=== PATIENT | female | born 1995 ===

== ENCOUNTER 2021-07-16 09:54 | Outpatient (REF) | payer OTHER, MEDICAID, SELFPAY ==
[2021-07-16 11:23] LABS: Appearance Urine CLEAR; Color Urine YELLOW; Glucose Urine UA NEG (NEG); Leukocyte Esterase Urine NEG (NEG); Nitrite Urine NEG (NEG); Specific Gravity - Urine >= 1.030 (1.005-1.025); Urine Blood NEG (NEG); Urine Ketones NEG (NEG); Urine Protein TRACE MG/DL (NEG-TRACE)
[2021-07-16 11:25] LABS: MANUAL DIFF FLAG NO
[2021-07-16 11:28] LABS: Basophils Percent Auto 0.4 % (0-2); Eosinophils Absolute Auto 0.1 X10*3/uL (0.0-0.4); Eosinophils Percent Auto 1.1 % (0-4); Hematocrit 40.3 % (37.0-47.0); Hemoglobin 13.3 g/dl (12.0-16.0); Imm Gran Abs Auto 0.02 X10*3/uL (0.00-0.03); Imm Gran Pct Auto 0.4 % (0.0-0.4); Lymphocytes Absolute Auto 1.7 X10*3/uL (1.2-4.9); Lymphocytes Percent Auto 29.1 % (20-40); Mean Corpuscular Hemoglobin 29.3 pg (27.0-33.0); Mean Corpuscular Volume 88.8 fL (80.0-98.0); Mean Platelet Volume 10.3 fL (9.4-12.3); Monocytes Absolute Auto 0.7 X10*3/uL (0.1-1.2); Monocytes Percent Auto 12.6 % (2-11); Neutrophils Absolute Auto 3.2 x10*3/uL (2.0-8.3); Neutrophils Percent Auto 56.4 % (45-73); Platelet Count 206 X10*3/uL (160-400); Red Blood Count 4.54 X10*6/uL (4.20-5.50); Red Cell Distribution Width 12.1 % (11.0-16.0); White Blood Count 5.7 X10*3/uL (4.8-10.8)
[2021-07-16 12:07] LABS: Alanine Aminotransferase 13 U/L (0-31); Albumin Level 4.3 g/dL (3.5-5.0); Alkaline Phosphatase 71 U/L (39-117); Anion Gap 10 (12-20); Aspartate Amino Transferase 14 U/L (5-31); Bilirubin Total 0.2 mg/dL (0.0-1.0); Blood Urea Nitrogen 8 mg/dL (9-16); Calcium 9.3 mg/dL (8.4-10.2); Carbon Dioxide 24 mmol/L (22-29); Chloride 109 mmol/L (96-108); Cholesterol 144 mg/dL; Estimated Glomerular Filt Rate > 60; Glucose Fasting 98 mg/dL (60-99); HDL Cholesterol 64 mg/dL; Iron 40 mcg/dL (30-160); LDL Cholesterol Calculated 68 mg/dl; Percent Iron Saturation 10 % (15-50); Potassium 3.7 mmol/L (3.3-5.1); Sodium 139 mmol/L (135-145); Total Iron Binding Capacity 392 mcg/dL (228-428); Total Protein 7.4 g/dL (6.5-8.0); Triglycerides 62 mg/dL; Unsaturated Iron Binding 352 ug/dL
[2021-07-16 12:25] LABS: Folate 9.9 ng/mL (> or = 4.0); Vitamin B12 401 pg/mL (200-900)
[2021-07-16 12:34] LABS: TSH reflex Free T4 2.75 uIU/mL (0.32-4.0)
[2021-07-16 13:03] LABS: Ferritin 59 ng/mL (10-122)
== END 2021-07-16 09:55 | disposition home or self-care (01) ==
LOC: HO.HMGCLDS 09:54
PROVIDERS: PCP Nurse Practitioner Family; Visit Provider Nurse Practitioner Family
DX: Z00.00 Encounter for general adult medical examination without abnormal findings (principal)
CPT/HCPCS: 36415; 80053; 80061; 81003; 82607; 82728; 82746; 83540; 84443; 85025

== ENCOUNTER 2023-08-02 10:51 | Outpatient (AMB) | payer MEDICAID, SELFPAY ==
--- NOTE | 2023-08-02 10:53 | MHC.PC.OV ---
Vital Signs 08/02/23 10:55 Height 5 ft 0.3 in Weight 116 lb BMI 22.4 BP 100/68 Blood Pressure Location Rt brachial Position Sitting Pulse 91 Pulse Source Pulse Oximeter Pulse Oximetry (%) 99 Oxygen Delivery Method Room Air Intake Visit Reasons: growth on right scalp Intake Note: Patient here for growth behind right ear. She states at first it was tender which it no longer is, feels scaly and hard. Her mom has a hx of skin cancer. Brown in color and weird shape. Allergies loratadine Allergy (Verified 08/02/23 10:57) itchy skin Medication List - Last Reconciled 08/02/23 by YOVANI Rucker No Known Home Meds Tobacco use date assessed: 08/02/23 Dental Screening Dental Screen Date: 08/02/23 Did you have a dental visit in the last 12 months?: Yes Did you have a dental problem in the last 6 months where you did not have access to dental care?: No Was dental information given to patient?: Patient has dentist HPI growth on right scalp HPI Details Pt reports noticing a bump behind her right ear 4 days ago. She reports that this was pruritic but is not anymore. Pt reports that this is tender. She does have a mole in this area that appears dry. Will refer to derm. Denies fever, chills, and dizziness. [facility] Medical History (Updated 08/02/23 @ 11:07 by YOVANI Rucker) Depression, major, recurrent, moderate Anxiety Family History Father No problems noted. Mother Hypertension Social History Housing: House Patient Tobacco Use Status: Never used Tobacco e-Cigarette/Vaping Use: Former Use Current occupational status: employed Cognitive needs: No Hearing needs: No Vision needs: No Questionnaire Thrive Questionnaire Date Thrive assessed: 08/17/22 AUDIT C Alcohol Use Questionnaire (AUDIT-C) 1. How often do you have a drink containing alcohol?: Monthly or less 2. How many drinks containing alcohol do you have on a typical day when you are drinking?: 1 or 2 3. How often do you have six or more drinks on one occasion?: Never Total Score: 1 Score Reviewed/Action Taken: No YENIFER-7 AMB Questionnaire YENIFER-7 Date YENIFER - 7 assessed: 08/17/22 Source: Developed by Drs. Bud Conde, Jany Ba, Calvin Cornejo and colleagues, with an educational deyvi from [email or web address]. Review of Systems Const Reports as per HPI Physical exam (Primary Care) Vital Signs: Last Vital Signs Pulse 91 08/02/23 10:55 BP 100/68 08/02/23 10:55 Pulse Ox 99 08/02/23 10:55 Oxygen Delivery Method Room Air 08/02/23 10:55 BMI result Body Mass Index 22.4 Tobacco/Smoking Status: Tobacco use Status Tobacco use date assessed 08/02/23 08/02/23 10:59 Patient Tobacco Use Status Never used Tobacco 08/02/23 10:54 e-Cigarette/Vaping Use Former Use 08/02/23 10:54 Thrive Assessment: Date of Thrive Assessment Date Thrive assessed 08/17/22 08/02/23 10:54 Const General: cooperative Orientation/consciousness: patient oriented x3 Resp Effort & Inspection: normal respiratory effort Auscultation: clear to auscultation bilaterally Cardio Rate: regular rate Rhythm: regular rhythm Heart sounds: S1 normal heart sound present and S2 normal heart sound present Skin Other: right postauricular region slightly superior along hairline with small ? mole, dry, darker pigmentation, not tender with touch Neuro General: patient oriented x3 Psych Appearance: grossly normal Mental Status: mental status grossly normal Speech and movement: Normal speech and movement present Affect: normal affect Attitude: cooperative Thought process: Normal thought process present Thought content: Normal thought content present Insight: Good insight present (Psych) Judgement: Good judgement present (Psych) Assessment and Plan Assessment & Plan (1) Scalp lesion: Code(s): L98.9 - Disorder of the skin and subcutaneous tissue, unspecified Plan: Referred to derm Plan The patient agreed to the use of a medical equipment technician for this encounter. Scribed for YOVANI Brice by nathen Tariq scribe, on 08/02/2023 at 11:05 EST. Orders: Referrals Dermatology Referral L98.9 - Disorder of the skin and subcutaneous tissue, unspecified Coding Level of Care Code Est Pt Level 3 (95191) Diagnoses Scalp lesion L98.9
[2023-08-02 10:55] VITALS: BP 100/68; PULSE 91; O2SAT 99; BMI 22.4
== END 2023-08-02 11:10 | disposition home or self-care (01) ==
PROVIDERS: PCP Nurse Practitioner Family; Visit Provider Nurse Practitioner Family
DX: L98.9 Disorder of the skin and subcutaneous tissue, unspecified (principal)
CPT/HCPCS: 99213

== ENCOUNTER 2023-09-29 09:13 | Outpatient (AMB) | payer OTHER, SELFPAY ==
[2023-09-29 09:15] VITALS: BP 110/70; PULSE 83; TEMP 36.1; O2SAT 98; BMI 22.8
--- NOTE | 2023-09-29 09:15 | MHC.OFFWIV ---
Intake Vital Signs 09/29/23 09:15 Height 5 ft 0.3 in Weight 118 lb BMI 22.8 BP 110/70 Blood Pressure Location Lt brachial Position Sitting Pulse 83 Pulse Source Pulse Oximeter Temp 97.0 F Temp Source Temporal Artery Scan Pulse Oximetry (%) 98 Oxygen Delivery Method Room Air Intake Visit Reasons: EST/sinus pressure (lobby masked) Intake Note: pt is here today for sinus pressure started 5 days ago Patient Tobacco Use Status: Never used Tobacco Allergies loratadine Allergy (Verified 09/29/23 09:16) itchy skin Medication List - Last Reconciled 09/29/23 by HAY Gonzalez amoxicillin 875 mg PO BID 7 days Do you need a note to return to daycare/school/sports/work: No HPI HPI Comments History of Present Illness Details 27-year-old female presents today complaining of left sided maxillary sinus pain for the last 10 days. It radiates into her teeth. [facility] Medical History (Updated 09/29/23 @ 09:44 by HAY Gonzalez) Depression, major, recurrent, moderate Anxiety Family History Father No problems noted. Mother Hypertension Social History Housing: House Patient Tobacco Use Status: Never used Tobacco e-Cigarette/Vaping Use: Former Use Current occupational status: employed Cognitive needs: No Hearing needs: No Vision needs: No Review of Systems Eyes Reports no additional complaints ENT Reports as per HPI Card Reports no additional complaints Resp Reports no additional complaints Physical Exam Vital Signs: Last Vital Signs Temp 97.0 F 09/29/23 09:15 Pulse 83 09/29/23 09:15 BP 110/70 09/29/23 09:15 Pulse Ox 98 09/29/23 09:15 Oxygen Delivery Method Room Air 09/29/23 09:15 BMI result Body Mass Index 22.8 Const General: healthy appearing HEENT Head: Yes normal to inspection, Yes normocephalic and Yes atraumatic Ears: hearing grossly normal bilaterally, external ears normal, TM's normal bilaterally, TM normal on the right, TM normal on the left and EAC's normal General nose exam: Normal external nose present Face and sinus: Yes sinus tenderness (left) Mouth: Normal oral and palatal mucosa present Resp Effort & Inspection: normal respiratory effort Auscultation: clear to auscultation bilaterally Cardio Rate: regular rate Rhythm: regular rhythm Assessment & Plan Assessment & Plan (1) Sinusitis: Code(s): J32.9 - Chronic sinusitis, unspecified Plan: Patient will take antibiotics for 7 days. I also talked to her about some steam inhalation to break up some of her sinus blockage. Follow up with her PCP Plan See plan Medications: New amoxicillin 875 mg PO BID 7 days 14 tabs 0RF Coding Level of Care Code Est Pt Level 3 (30779) Diagnoses Sinusitis J32.9
== END 2023-09-29 10:00 | disposition home or self-care (01) ==
PROVIDERS: PCP Nurse Practitioner Family; Visit Provider Physician Assistant Medical
DX: J32.9 Chronic sinusitis, unspecified (principal)
CPT/HCPCS: 99213

== ENCOUNTER 2024-06-01 08:52 | Outpatient (AMB) | payer OTHER, SELFPAY ==
[2024-06-01 09:00] VITALS: BP 118/70; PULSE 83; TEMP 36.8; O2SAT 100; BMI 22.8
--- NOTE | 2024-06-01 09:00 | MHC.OFFWIV ---
Intake Vital Signs 06/01/24 09:00 Height 5 ft 0.3 in Weight 118 lb BMI 22.8 BP 118/70 Blood Pressure Location Lt brachial Position Sitting Pulse 83 Pulse Source Pulse Oximeter Temp 98.3 F Temp Source Oral Pulse Oximetry (%) 100 Oxygen Delivery Method Room Air Intake Visit Reasons: EP sore throat, ear pain, congestion Intake Note: pt is here for sore throat, ear pain, and congestion Patient Tobacco Use Status: Never used Tobacco Allergies loratadine Allergy (Verified 06/01/24 09:01) itchy skin Do you need a note to return to daycare/school/sports/work: No HPI EP sore throat, ear pain, congestion HPI Details This note is constructed using voice recognition software. While every effort has been made to ensure accuracy, electric sign wirer errors may have been included. The patient is a 28 year old female who presents to the clinic today with soar throat, ear and nose congestion. She denies fever, chills, dyspnea. She has a mild cough with thick green secretions. Her child is also sick with the same. She has not taken anything to help herself feel better. [facility] Medical History (Updated 09/29/23 @ 09:44 by HAY Gonzalez) Depression, major, recurrent, moderate Anxiety Family History Father No problems noted. Mother Hypertension Social History Housing: House Patient Tobacco Use Status: Never used Tobacco e-Cigarette/Vaping Use: Former Use Current occupational status: employed Cognitive needs: No Hearing needs: No Vision needs: No Review of Systems Const All systems reviewed & are unremarkable except as noted in HPI and below Physical Exam Vital Signs: Last Vital Signs Temp 98.3 F 06/01/24 09:00 Pulse 83 06/01/24 09:00 BP 118/70 06/01/24 09:00 Pulse Ox 100 06/01/24 09:00 Oxygen Delivery Method Room Air 06/01/24 09:00 BMI result Body Mass Index 22.8 Const General: cooperative, healthy appearing, comfortable and no acute distress Orientation/consciousness: patient oriented x3 Limitations: no limitations HEENT Head: Yes normal to inspection Ears: hearing grossly normal bilaterally, external ears normal and TM's normal bilaterally General nose exam: Normal external nose present, Normal nares present and No nasal discharge present Face and sinus: Yes normal facial exam and Yes sinuses nontender Mouth: Normal oral and palatal mucosa present and moist mucous membranes Throat: Yes tonsils normal, Yes uvula midline and Yes posterior oropharynx abnormal (Erythema) Eyes General: appearance normal, both eyes and all related structures Neck Neck: Yes normal visual inspection Resp Effort & Inspection: normal respiratory effort, able to speak in complete sentences, Actively coughing, no respiratory distress, not tachypneic, no tripod positioning and no use of accessory muscles Auscultation: clear to auscultation bilaterally Cardio Jugular venous distension: no JVD Rate: regular rate Rhythm: regular rhythm Heart sounds: S1 normal heart sound present, S2 normal heart sound present, no click, no gallops, no murmurs and no rubs Skin General skin exam: no rashes or lesions noted, elasticity normal and turgor normal Neuro General: patient oriented x3 Extrem General: Yes normal to inspection and Yes no clubbing, cyanosis or edema Results AMB Rapid Strep AMB Rapid Strep Negative Last Edit by Girma Hermosillo CMA on 06/01/24 09:15 Results Reviewed Results Reviewed: Laboratory Last Values Strep Scn Rapid Clinic Negative 06/01/24 09:15 Assessment & Plan Assessment & Plan (1) URI (upper respiratory infection): Code(s): J06.9 - Acute upper respiratory infection, unspecified Qualifiers: URI type: unspecified URI Qualified Code(s): J06.9 - Acute upper respiratory infection, unspecified Plan: Viral swab obtained to rule out Covid, FLu, RSV based on symptoms. Advised mask wearing while symptomatic and quarantine per current CDC guidelines. Reviewed at home support methods including hydration, humidification, vix vapor rub, sinus rinse. consider Mucinex for symptom management. Advised follow up with worsening symptoms such as dyspnea at rest, which would require emergent evaluation. Plan See above for full details and plan. Orders: Orders AMB Rapid Strep Screen Today Iveth Guillen PA-C Z13.9 - Encounter for screening, unspecified SARS-CoV2/FLU/RSV Today Iesha Cabezas NP J06.9 - Acute upper respiratory infection, unspecified Coding Level of Care Code Est Pt Level 3 (64397) Diagnoses Upper respiratory tract infection, unspecified type J06.9 URI type: unspecified URI
== END 2024-06-01 11:33 | disposition home or self-care (01) ==
PROVIDERS: PCP Nurse Practitioner Family; Visit Provider Registered Nurse
DX: Z13.9 Encounter for screening, unspecified (principal); J06.9 Acute upper respiratory infection, unspecified

== ENCOUNTER 2024-06-01 08:52 | Outpatient (REF) | payer OTHER, SELFPAY ==
[2024-06-01 16:38] LABS: Influenza A PCR NEGATIVE (Negative); Influenza B PCR NEGATIVE (Negative); Resp Syncy Virus RNA Qual PCR NEGATIVE (Negative); SARS COV2 PCR INHOUSE NEGATIVE (Negative)
== END 2024-06-01 08:53 | disposition home or self-care (01) ==
LOC: HO.LNP 08:52
PROVIDERS: PCP Nurse Practitioner Family; Visit Provider Registered Nurse
DX: J06.9 Acute upper respiratory infection, unspecified (principal)
CPT/HCPCS: 0241U; 87880; 99212

== ENCOUNTER 2024-06-29 14:00 | Outpatient (AMB) | payer OTHER, SELFPAY ==
[2024-06-29 14:09] VITALS: BP 110/62; PULSE 76; O2SAT 97; BMI 22.0
--- NOTE | 2024-06-29 14:09 | A.OFFPC_ITS ---
Vital Signs 06/29/24 14:09 Height 5 ft 0.3 in Weight 114 lb BMI 22.0 BP 110/62 Blood Pressure Location Rt brachial Position Sitting Pulse 76 Pulse Source Pulse Oximeter Pulse Oximetry (%) 97 Oxygen Delivery Method Room Air Intake Visit Reasons: dizziness, ? anemia Intake Note: pt is here for dizziness, possible anemia Allergies loratadine Allergy (Verified 06/29/24 17:28) itchy skin Medication List - Last Reconciled 06/29/24 by ARCENIO Rucker No Known Home Meds Tobacco use date assessed: 08/02/23 Dental Screening Dental Screen Date: 08/02/23 HPI dizziness, ? anemia HPI Details Chief Complaint The patient presents with sudden onset dizziness. History of Present Illness The patient is a 28-year-old female presenting with dizziness. The symptoms began suddenly last night with no apparent inciting event. The dizziness is described as a sensation of moving while stationary, accompanied by fatigue, weakness, and intermittent shortness of breath. The patient denies any associated nausea or vomiting. She also reports losing 6 pounds recently and experiencing poor appetite and irregular eating habits. The patient believes her anxiety may exacerbate the shortness of breath. There is no history of fever, chills, chest pain, gastrointestinal bleeding, or excessive vaginal bleeding. She denies any possibility of . The dizziness seems to occur in waves and momentarily feels like an out-of-body experience, potentially indicating a connection to anxiety or panic attacks. She currently takes no medication for anxiety. The patient acknowledges lifestyle factors that might contribute, including minimal food intake. Today, she experienced episodic dizziness while driving, which did not resolve upon reaching her destination. Social History - Reports poor dietary habits, consuming approximately one meal a day or experiencing lack of appetite. - Denies substance use-related to curren t symptoms but mentions recent vaping and subsequent cessation. - Reports anxiety as a significant facto r impacting her current health, with no preventive or therapeutic measures in place. Health Maintenance Review of Systems - Constitutional: Reports fatigue and we akness. - Neurological: Reports dizziness with a sense of things moving around while stationary. - Respiratory: Reports shortness of elliot th, believes it is related to anxiety. - Gastrointestinal: Denies nausea and vo miting. - Genitourinary: Denies vaginal bleeding . - Hematological: Reports recent unintent ional weight loss. Physical Exam General: Cooperative, healthy appearing, comfortable, no acute distress and well developed Orientation: Patient oriented x3 Limitations: No limitations Head: Normal to inspection Ears: Hearing grossly normal bilaterally Nose: Normal external nose present Face and sinus: Normal facial exam Eyes: Appearance normal, both eyes and all related structures Neck: Normal visual inspection and Yes full ROM Respiratory: Normal respiratory effort and able to speak in complete sentences. Clear to auscultation bilaterally Cardiovascular: Regular rate and rhythm. Normal S1 and S2 GI: Normal to inspection. Soft to palpation and nontender Skin: No rashes or lesions noted Neuro: Patient oriented x3 Extremities: Normal to inspection Results Plan - Recommend urgent evaluation in the tonia ency room to rule out potential causes of dizziness, including inner ear disorders or other neurological issues. - Coordinate with the patient's father t o ensure safe transportation to the emergency room due to intermittent dizziness while driving. - Plan to conduct blood work to investig ate possible causes of dizziness after ER evaluation. - Provide reassurance regarding the poss ible anxiety component and discuss potential treatment options for anxiety after immediate concerns are addressed. Patient was informed and verbally consented to the use of an ambient scribe for clinic note documentation during this visit. Discussion Notes Patient Instructions - Arrange for immediate transportation t o the emergency department for further evaluation. - Avoid driving or operating heavy machi deven until symptoms are evaluated and treated. - Once urgent care is received, follow u p for a comprehensive evaluation of anxiety and dietary concerns. - Prioritize rest and hydration until di zziness is medically assessed. - Consider discussing dietary habits and anxiety management at follow-up appointments. [facility] Medical History (Updated 06/29/24 @ 17:29 by ROBERT Rucker-TANYA) Depression, major, recurrent, moderate Anxiety Family History Father No problems noted. Mother Hypertension Social History Housing: House Patient Tobacco Use Status: Never used Tobacco e-Cigarette/Vaping Use: Former Use Current occupational status: employed Cognitive needs: No Hearing needs: No Vision needs: No Questionnaire PHQ-9 Over the last 2 weeks, how often have you been bothered by any of the following problems? 1. Little interest or pleasure in doing things: more than half the days 2. Feeling down, depressed, or hopeless: not at all 3. Trouble falling or staying asleep, or sleeping too much: several days 4. Feeling tired or having little energy: nearly every day 5. Poor appetite or overeating: nearly every day 6. Feeling bad about yourself - or that you are a failure or have let yourself or your family down: not at all 7. Trouble concentrating on things, such as reading the newspaper or watching television: more than half the days 8. Moving or speaking so slowly that other people could have noticed. Or the opposite - being so fidgety or restless that you have been moving around a lot more than usual: several days 9. Thoughts that you would be better off or of hurting yourself in some way: not at all Total score: 12 Depression Screening Interpretation: Positive Depression Screening Done: Yes 60908 - PHQ-9 Billing: Yes Source: Developed by Drs. Bud Conde, Jany Ba, Calvin Cornejo and colleagues, with an educational deyvi from [employer]. Thrive Questionnaire Date Thrive assessed: 06/29/24 I am a: Patient What is your living situation today?: I have a steady place to live Within the past 12 months, did the food you bought not last and you didn't have the money to get more?: Never true Within the past 12 months, did you worry whether your food would run out before you got money to buy more?: Never true Do you have trouble paying for medicines?: No Do you have trouble getting transportation to medical appointments?: No Do you have trouble paying your heating and electricity bill?: No Do you have trouble taking care of your child, family member or friend?: No Do you have trouble with day-to-day activities such as bathing, preparing meals, shopping, managing finances, etc.?: No Are you currently unemployed and looking for a job?: No Are you interested in more education?: No Please select the resources that you would like help with: None Currently or been in a relationship where the following occur: No concerns reported THRIVE Score: 0 AUDIT C Alcohol Use Questionnaire (AUDIT-C) 1. How often do you have a drink containing alcohol?: Never 3. How often do you have six or more drinks on one occasion?: Never Total Score: 0 Score Reviewed/Action Taken: Yes YENIFER-7 AMB Questionnaire YENIFER-7 Date YENIFER - 7 assessed: 06/29/24 Feeling nervous, anxious, or on edge: 3 = Nearly every day Not being able to stop or control worryin = Nearly every day Worrying too much about different things: 3 = Nearly every day Trouble relaxin = More than half the days Being so restless that it is hard to sit still: 0 = Not at all Becoming easily annoyed or irritable: 3 = Nearly every day Feeling afraid as if something awful might happen: 3 = Nearly every day Total YENIFER-7 score (0-4 normal; 5-9 mild; 10-14 moderate; 15-21 severe): 17 Source: Developed by Drs. Bud Conde, Jany Ba, Calvin Cornejo and colleagues, with an educational deyvi from [employer]. YENIFER-7 Assessment Billing YENIFER-7 Assessment Tool: YENIFER-7 Assessment 70307 Physical exam (Primary Care) Vital Signs: Last Vital Signs Pulse 76 06/29/24 14:09 BP 110/62 06/29/24 14:09 Pulse Ox 97 06/29/24 14:09 Oxygen Delivery Method Room Air 06/29/24 14:09 BMI result Body Mass Index 22.0 Tobacco/Smoking Status: Tobacco use Status Tobacco use date assessed 08/02/23 06/29/24 14:13 Patient Tobacco Use Status Never used Tobacco 06/29/24 14:13 e-Cigarette/Vaping Use Former Use 06/29/24 14:13 PHQ-9: PHQ-9 Score PHQ-9: Total score 12 06/29/24 14:50 Depression Screening Interpretation: Positive Thrive Assessment: Date of Thrive Assessment Date Thrive assessed 06/29/24 06/29/24 14:13 Currently or been in a relationship where the following occur: No concerns reported Coding Level of Care Code Est Pt Level 3 (18569) Diagnoses Anxiety F41.9 Fatigue R53.83 Dizziness R42 Additional Codes YENIFER-7 Assessment Billing - YENIFER-7 Assessment Tool: YENIFER-7 Assessment 71028 ([id number]) PHQ-9 - 94720 - PHQ-9 Billing: Yes ([id number]) Assessment & Plan Assessment & Plan (1) Anxiety: Code(s): F41.9 - Anxiety disorder, unspecified Category: Medical (2) Fatigue: Code(s): R53.83 - Other fatigue Category: Medical (3) Dizziness: Code(s): R42 - Dizziness and giddiness Category: Medical Plan .
== END 2024-06-29 16:06 | disposition home or self-care (01) ==
PROVIDERS: PCP Nurse Practitioner Family; Visit Provider Nurse Practitioner Family
DX: F41.9 Anxiety disorder, unspecified (principal); R53.83 Other fatigue; R42 Dizziness and giddiness

== ENCOUNTER → 2024-06-29 14:00 | Outpatient (BNVA) | payer OTHER, SELFPAY | PROVIDERS: PCP Nurse Practitioner Family; Visit Provider Nurse Practitioner Family | DX: F41.9 Anxiety disorder, unspecified (principal); R53.83 Other fatigue; R42 Dizziness and giddiness | CPT/HCPCS: 96127; 99212 ==

== ENCOUNTER 2024-08-22 08:59 | Outpatient (AMB) | payer OTHER, SELFPAY ==
--- OUTSIDE RECORDS SUMMARY | 2024-08-22 09:18 | XMS_ITS | Clinical Summary ---
Author Organization [facility] Address [address] [place] [address] Care Team Providers Care Communication Instructor Name Role Phone Unavailable Primary Care Provider Unavailabl e Allergies Active Allergy Reactions Criticality Noted Date Comments Loratadine 09/16/2020 Medications No known medications Social History Tobacco Use Types Packs/Day Years Used Date Smoking Tobacco: Every Day Nicotine Inhalation Smokeless Tobacco: Never Alcohol Use Standard Drinks/Week Comments No 0 (1 standard drink = 0.6 oz pur e alcohol) Sex and Gender Information Value Date Recorded Sex Assigned at Female 09/16/2020 8:05 PM EST Gender Identity Not on file Sexual Orientation Not on file Last Filed Vital Signs Vital Sign Reading Time Taken Comments Blood Pressure 129/82 09/16/2020 7:19 PM EST Pulse 73 09/16/2020 7:19 PM EST Temperature 36.7 ??C (98.1 ??F) 09/16/2020 7:19 PM ES T Respiratory Rate 16 09/16/2020 7:19 PM EST Oxygen Saturation 100% 09/16/2020 7:19 PM EST Inhaled Oxygen Concentration - - Weight 52.2 kg (115 lb) 09/16/2020 7:19 PM EST Height 149.9 cm (4' 11 ) 09/16/2020 7:19 PM EST Body Mass Index 23.23 09/16/2020 7:19 PM EST Plan of Treatment Not on file
--- OUTSIDE RECORDS SUMMARY | 2024-08-22 09:18 | XMS_ITS | Clinical Summary ---
Author Organization [facility] ity Address [address] [place] [address] Care Team Providers Care Senior Product Engineer Name Role Phone Unavailable Primary Care Provider Unavailabl e Social History Tobacco Use Types Packs/Day Years Used Date Smoking Tobacco: Every Day Smokeless Tobacco: Never Alcohol Use Standard Drinks/Week Comments No 0 (1 standard drink = 0.6 oz pur e alcohol) Sex and Gender Information Value Date Recorded Sex Assigned at Not on file Gender Identity Not on file Sexual Orientation Not on file Obstetrics History Plan of Treatment Health Maintenance Due Date Last Done Comments DTaP,Tdap,and Td Vaccines (1 - Tdap) 12/27/2015 Hepatitis B Vaccines (1 of 3 - 19+ 3-dose series) 12/27/2015 Cervical Cancer Screening: P ap Smear 2017 COVID-19 Vaccine ( - 2023-2 5 season) 2024 Influenza Vaccine (#1) 2024 HIB Vaccines Aged Out No longer eligi ble based on patient's age to complete this topic HPV Vaccines Aged Out No longer eligi ble based on patient's age to complete this topic Hepatitis A Vaccines Aged Out No long er eligible based on patient's age to complete this topic IPV Vaccines Aged Out No longer eligi ble based on patient's age to complete this topic MMR Vaccines Aged Out No longer eligi ble based on patient's age to complete this topic Meningococcal ACWY Vaccine Aged Out N o longer eligible based on patient's age to complete this topic Pneumococcal Vaccine: Pediat rics (0 to 5 Years) and At-Risk Patients (6 to 64 Years) Aged Out No longer eligible b ased on patient's age to complete this topic RSV Immunization Patients Un ladonna 20 months Aged Out No longer eligible b ased on patient's age to complete this topic Varicella Vaccines Aged Out No longer eligible based on patient's age to complete this topic
--- NOTE | 2024-08-22 09:53 | AM.OFFWIN_ITS ---
Intake Vital Signs 08/22/24 09:54 Weight 119 lb BP 110/70 Blood Pressure Location Rt brachial Position Sitting Pulse 85 Pulse Source Pulse Oximeter Temp 98.5 F Temp Source Oral Pulse Oximetry (%) 99 Oxygen Delivery Method Room Air Intake Visit Reasons: EP ?Sinus infection Intake Note: Patient here for sinus pressure, eye pain, teeth pain, light sensitivity and nausea that has been going on for a while on and off since June. Patient Tobacco Use Status: Never used Tobacco Allergies loratadine Allergy (Verified 08/22/24 09:56) itchy skin Do you need a note to return to daycare/school/sports/work: No HPI HPI Comments History of Present Illness Details This is a 28-year-old female with a past medical history anxiety p resenting for evaluation of sinus pressure that she has had for the past 7 to 10 days. Patient reports pressure in her ears, teeth and behind her eyes. Patient has been taking Sudafed and cetirizine without relief of her discomfort. Patient denies having any fevers, chills, cough and states that her previously identified vertigo symptoms from June 2024 have resolved. Patient has not been taking any ibuprofen or Tylenol for relief of her discomfort. Patient states that she does have an appointment coming up with both a therapist and a psychiatrist for ongoing management of her anxiety. [facility] Medical History (Updated 08/22/24 @ 10:21 by Heidy Hunter PA-C) Depression, major, recurrent, moderate Anxiety Family History Father No problems noted. Mother Hypertension Social History Housing: House Patient Tobacco Use Status: Never used Tobacco e-Cigarette/Vaping Use: Former Use Current occupational status: employed Cognitive needs: No Hearing needs: No Vision needs: No Review of Systems Const All systems reviewed & are unremarkable except as noted in HPI and below Denies chills, Denies fatigue, Denies fever(s) and Denies headache(s) Eyes Reports no additional complaints ENT Denies otalgia, Denies headache(s), Denies nasal congestion, Denies odynophagia, Reports sinus pressure and Denies sore throat Card Reports no additional complaints Resp Reports no additional complaints GI Reports no additional complaints and Denies odynophagia Reports no additional complaints Neuro Reports no additional complaints and Denies headache(s) Endo Reports no additional complaints and Denies fatigue Chan/Lymph Reports no additional complaints Physical Exam Vital Signs: Last Vital Signs Temp 98.5 F 08/22/24 09:54 Pulse 85 08/22/24 09:54 BP 110/70 08/22/24 09:54 Pulse Ox 99 08/22/24 09:54 Oxygen Delivery Method Room Air 08/22/24 09:54 Const General: cooperative, healthy appearing, comfortable, no acute distress, well developed, alert, awake and Physically active; No acute distress or tired appearing Nutritional Appearance: average body habitus Orientation/consciousness: patient oriented x3 Limitations: no limitations HEENT Head: Yes normal to inspection and Yes normocephalic Ears: hearing grossly normal bilaterally, external ears normal, right TM abnormal (cerumen impaction), left TM abnormal (bulging without erythema) and EAC's normal General nose exam: Normal external nose present Face and sinus: Yes normal facial exam Mouth: Normal oral and palatal mucosa present and moist mucous membranes Teeth and gingiva: dentition normal Throat: Yes posterior oropharynx normal and No postnasal drainage Neck Lymphatic: no lymphadenopathy noted Resp Effort & Inspection: normal respiratory effort Auscultation: clear to auscultation bilaterally Cardio Rate: regular rate Rhythm: regular rhythm Skin General skin exam: no rashes or lesions noted Neuro General: patient oriented x3 Psych Appearance: grossly normal Mental Status: mental status grossly normal Affect: normal affect Attitude: cooperative Thought process: Normal thought process present Thought content: Normal thought content present Insight: Good insight present (Psych) Judgement: Good judgement present (Psych) Assessment & Plan Assessment & Plan (1) Viral sinusitis: Comment: There is no evidence of a bacterial sinusitis or otitis media. Code(s): J32.9 - Chronic sinusitis, unspecified; B97.89 - Other viral agents as the cause of diseases classified elsewhere Plan: Fluticasone nasal spray 1 spray each nostril once daily times 2-4 weeks; patient to continue with cetirizine daily. Medications: New fluticasone propionate 50 mcg/actuation administer into each nostril 1 spray intranasal DAILY 16 grams 1RF Coding Level of Care Code Est Pt Level 3 (26169) Diagnoses Viral sinusitis J32.9; B97.89 Time Spent (min) 20
[2024-08-22 09:54] VITALS: BP 110/70; PULSE 85; TEMP 36.9; O2SAT 99
== END 2024-08-22 10:33 | disposition home or self-care (01) ==
PROVIDERS: PCP Nurse Practitioner Family; Visit Provider Physician Assistant
DX: J32.9 Chronic sinusitis, unspecified (principal); B97.89 Other viral agents as the cause of diseases classified elsewhere

== ENCOUNTER 2024-10-19 09:01 | Outpatient (AMB) | payer OTHER, SELFPAY ==
--- NOTE | 2024-10-19 09:13 | AM.OFFWIN_ITS ---
Intake Vital Signs 3 10/19/24 09:15 Weight 119 lb BP 122/80 Blood Pressure Location Rt brachial Position Sitting Pulse 70 Pulse Source Pulse Oximeter Pulse Oximetry (%) 98 Oxygen Delivery Method Room Air Intake Visit Reasons: EP Tonsil abscess/stone? Intake Note: Patient here for tonsil stone? that has been present for a couple of weeks. Patient Tobacco Use Status: Never used Tobacco Allergies loratadine Allergy (Verified 10/19/24 09:16) itchy skin Do you need a note to return to daycare/school/sports/work: No HPI HPI Comments 2 History of Present Illness0 Details 28 y/o female patient who presents to [facility] walk in clinic with c/o Tonsil stones. Reports noticing a small white spot left throat x 2 weeks. Reports recent URI symptoms that since resolved. [facility] Medical History (Updated 10/19/24 @ 09:57 by Shanita Gallo NP) Tonsil stone Depression, major, recurrent, moderate Anxiety Family History Father No problems noted. Mother Hypertension Social History Housing: House Patient Tobacco Use Status: Never used Tobacco e-Cigarette/Vaping Use: Former Use Current occupational status: employed Cognitive needs: No Hearing needs: No Vision needs: No Review of Systems Const All systems reviewed & are unremarkable except as noted in HPI and below Physical Exam Vital Signs: Last Vital Signs Pulse 70 10/19/24 09:15 BP 122/80 10/19/24 09:15 Pulse Ox 98 10/19/24 09:15 Oxygen Delivery Method Room Air 10/19/24 09:15 Const General: no acute distress Nutritional Appearance: well nourished Orientation/consciousness: patient oriented x3 HEENT Head: Yes normocephalic Ears: external ears normal and TM's normal bilaterally General nose exam: Normal external nose present and No nasal discharge present Face and sinus: Yes sinuses nontender Mouth: moist mucous membranes Mouth/tongue images: 2 1. Small white Spot left throat, left tonsil. Small cyst vs Stone. Non Tender, no drainage seen. Throat: Yes tonsils normal and Yes uvula midline Neuro General: patient oriented x3 Results AMB Rapid Strep 2 AMB Rapid Strep Negative Last Edit by MARGARETTE Al on 04/03/25 09:28 Results Reviewed Results Reviewed: Laboratory Last Values Strep Scn Rapid Clinic Negative 10/19/24 09:28 Assessment & Plan Assessment & Plan (1) Tonsil stone: Code(s): J35.8 - Other chronic diseases of tonsils and adenoids Plan: Stone vs cyst vs Abscess. Rapid strep negative. Advised gargling warm salted water. Orders: Orders 2 AMB Rapid Strep Screen Today Z13.9 - Encounter for screening, unspecified Coding Level of Care Code Est Pt Level 4 (28373) Diagnoses Tonsil stone J35.8 Time Spent (min) 20
[2024-10-19 09:15] VITALS: BP 122/80; PULSE 70; O2SAT 98
--- OUTSIDE RECORDS SUMMARY | 2024-10-19 09:15 | XMS_ITS | Clinical Summary ---
Author Organization [facility] Address [address] [place] [address] Care Team Providers Care Live Study Manager Name Role Phone Unavailable Primary Care Provider [...]
--- OUTSIDE RECORDS SUMMARY | 2024-10-19 09:16 | XMS_ITS | Encounter Summary ---
Author Organization [facility] Address [address] [place] [address] Care Team Providers Care Pt Escort Name Role Phone Unavailable Primary Care Provider Unavailabl e Encounter Details Date Type Department Care Team (Latest Contact Info) Description 07/17/2020 Lab Requisition [facility] COVID [address] Through [address] [place] [address] [address] [place] [address] Catalino Ambrocio PA-C [address] [place] [address] Encounter for laboratory testing for COVID-19 virus Social History Tobacco Use Types Packs/Day Years Used Date Smoking Tobacco: Never Assessed Sex and Gender Information Value Date Recorded Sex Assigned at Not on file Gender Identity Not on file Sexual Orientation Not on file documented as of this encounter Plan of Treatment Not on file documented as of this encounter Procedures Procedure Name Priority Date/Time Associated Diagnosis Comments COVID-19 (SARS-COV-2) DANIEL Routine 07/17/2020 2:36 PM EST Encounter for laboratory testing for COVID-19 virus [ICD-10-CM] documented in this encounter Results * (ABNORMAL) COVID-19 (SARS-CoV-2), DANIEL (In-House) (07/17/2020 2:36 PM EST) SARS CoV 2 Detected(A) Not Detected 07/17/2020 4:34 PM EST [facility] Comment: Positive results are indicative of the presence of SARS-CoV-2 RNA (COVID-19). The SARS-CoV-2 (Covid-19) Nucleic Acid Amplification Assay is limited to laboratories certified under the Clinical Laboratory Improvement Amendments of 1988 (CLIA), 42 U.S.C. 263a, to perform high complexity tests. Nucleic acid amplication tests include RT-PCR and TMA. This assay has not been FDA cleared or approved, however, this assay has been authorized by the Food and Drug Administration (FDA) under an Emergency Use Authorization (EUA). ??Validation was completed and performance characteristics established by [facility] as per the FDA and CLIA requirement for this EUA. The Aptima SARS-CoV-2 assay Letter of Authorization, along with the authorized Fact Sheet for Healthcare Providers, the authorized Fact Sheet for Patients, and authorized labeling are available on the FDA website: https://www.fda.gov/medical-devices/hpramftvh-mleuguuilu-uttttoa-devices/emergen - k-azzjxnifdyljnj-kpwydxf-devices. Performed at [facility], [place], [place] ??[place] License [id number] ??CLIA [id number] Source Nasopharyngeal 07/17/2020 4:34 PM EST [facility] Comment:Performed at [facility], [place], [place] license No. [id number] CLIA No. [id number] Microbiology Nasopharyngeal swab / Unknown 07/17/2020 2:36 PM EST 07/17/2020 4:15 PM EST Catalino Ambrocio PA-C MICROBIOLOGY - NERAL ORDERABLES [facility] [employer] [address] [place] [address] documented in this encounter Visit Diagnoses Diagnosis Encounter for laboratory testing for COVID-19 virus documented in this encounter
--- OUTSIDE RECORDS SUMMARY | 2024-10-19 09:16 | XMS_ITS | Encounter Summary ---
Author Organization [facility] Address [address] [place] [address] Care Team Providers Care It Operations Analyst Name Role Phone Unavailable Primary Care Provider Unavailabl e Encounter Details Date Type Department Care Team (Latest Contact Info) Description 07/17/2020 Lab Requisition [facility] Drive Through [address] [place] [address] [address] [place] [address] Catalino Ambrocio PA-C [address] [place] [address] Encounter for laboratory testing for COVID-19 virus Social History Tobacco Use Types Packs/Day Years Used Date Smoking Tobacco: Never Assessed Sex and Gender Information Value Date Recorded Sex Assigned at Not on file Gender Identity Not on file Sexual Orientation Not on file documented as of this encounter Plan of Treatment Not on file documented as of this encounter Visit Diagnoses Diagnosis Encounter for laboratory testing for COVID-19 virus documented in this encounter
--- OUTSIDE RECORDS SUMMARY | 2024-10-19 09:16 | XMS_ITS ---
Author Name [facility] Organization Unknown Care Team Organization Name Specialty Phone Email Start Date End [facility] 07/17/2020 07/17/2020
--- OUTSIDE RECORDS SUMMARY | 2024-10-19 09:16 | XMS_ITS | Clinical Summary ---
Author Organization [facility] Address [address] [place] [address] Care Team Providers Care Repairer Sash And Door Name Role Phone Unavailable Primary Care Provider Unavailabl e Social History Tobacco Use Types Packs/Day Years Used Date Smoking Tobacco: Never Assessed Sex and Gender Information Value Date Recorded Sex Assigned at Not on file Gender Identity Not on file Sexual Orientation Not on file Plan of Treatment Health Maintenance Due Date Last Done Comments Hepatitis C Virus Screening 1996 HIV Screening 2009 DTaP/Tdap/Td Vaccines (1 - Tdap) 12/27/2015 Hepatitis B Vaccines (1 of 3 - 19+ 3-dose series) 12/27/2015 Pap Smear (Ages 21-65) 2017 Influenza Vaccine 02/17/2024 COVID-19 Vaccine ( - 2023-2 5 season) 2024 HPV Vaccines Aged Out No longer eligi ble based on patient's age to complete this topic Pneumococcal Vaccine: Pediat monse (0-5 Years) and At-Risk Patients (6 to 49 Years) Aged Out No longer eligible b ased on patient's age to complete this topic
--- OUTSIDE RECORDS SUMMARY | 2024-10-19 09:16 | XMS_ITS | Clinical Summary ---
Author Organization [facility] Address [address] [place] [address] Care Team Providers Care Cabinet Professional Name Role Phone Unavailable Primary Care Provider Unavailabl e Social History Tobacco Use Types Packs/Day Years Used Date Smoking Tobacco: Every Day Smokeless Tobacco: Never Alcohol Use Standard Drinks/Week Comments No 0 (1 standard drink = 0.6 oz pur e alcohol) Comments Unknown Sex and Gender Information Value Date Recorded Sex Assigned at Not on file Legal Sex Female 2:13 PM EST Gender Identity Not on file Sexual Orientation Not on file Obstetrics History Plan of Treatment Health Maintenance Due Date Last Done Comments DTaP,Tdap,and Td Vaccines (1 - Tdap) 12/27/2015 Hepatitis B Vaccines (1 of 3 - 19+ 3-dose series) 12/27/2015 Cervical Cancer Screening: P ap Smear 2017 COVID-19 Vaccine (2023-2 5 season) 2024 Influenza Vaccine (Season Ended) 2025 HIB Vaccines Aged Out No longer eligi [...] patient's age to complete this topic Meningococcal B Vacine Aged Out No lo nger eligible based on patient's age to complete [...]
== END 2024-10-19 09:43 | disposition home or self-care (01) ==
PROVIDERS: PCP Nurse Practitioner Family; Visit Provider Nurse Practitioner Family
DX: J35.8 Other chronic diseases of tonsils and adenoids (principal); Z13.9 Encounter for screening, unspecified

== ENCOUNTER → 2024-10-19 09:01 | Outpatient (BNVA) | payer OTHER, SELFPAY | PROVIDERS: PCP Nurse Practitioner Family; Visit Provider Nurse Practitioner Family | DX: J35.8 Other chronic diseases of tonsils and adenoids (principal) | CPT/HCPCS: 87880; 99212 ==